=== PATIENT | male | born 1990 | race Two or more races ===

== ENCOUNTER 2018-03-11 00:16 | Emergency (ER) | payer BC ==
[2018-03-11 00:24] VITALS: BP 143/96
[2018-03-11] MEDS ORDERED: Sodium Chloride 0.9% 1,000 ML IV ONE (00:31)
[2018-03-11] MEDS ORDERED: Ondansetron 4 MG/2 ML SDV IV ONE (00:31)
[2018-03-11] MEDS ORDERED: Ketorolac 30 MG/ML SDV IVPUSH ONE (00:31)
--- NOTE | 2018-03-11 00:43 | EDM.PDOC ---
ED HPI GENERAL MEDICAL PROBLEM - General Chief Complaint: Headache Stated Complaint: FEVER, NAUSEA [id number] Time Seen by Provider: 03/11/18 00:25 Source of Information: Reports: Patient History Limitations: Reports: No Limitations - History of Present Illness INITIAL COMMENTS - FREE TEXT/NARRATIVE: This 27 yo male patient reports to the ED with a 3 day history of a migraine headache. The patient reports he has tried to take baby aspirin and Tylenol for his pain with some temporary symptom relief. The patient reports that he has also had some nasal congestion. 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 The patient reports that he has had headaches in the past, but never this bad. The patient states that he also took some generic Robitussin. The patient reports that he was unable to sleep this evening due to the pain in his head. The patient reports he has also been nauseated due to the headache. 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 [No Known Home Meds] 03/11/18 [History] Past Medical History - Past Surgical History Other Musculoskeletal Surgeries/Procedures:: broken nose; bron right arm and right leg Social & Family History - Caffeine Use Caffeine Use: Reports: Soda, Tea ED ROS GENERAL - Review of Systems Review Of Systems: ROS reveals no pertinent complaints other than HPI. - Physical Exam Exam: See Below Exam Limited By: No Limitations General Appearance: Alert, WD/WN, Moderate Distress Eye Exam: Bilateral Eye: EOMI, Normal Inspection, PERRL Ears: Normal External Exam, Normal Canal, Hearing Grossly Normal, Normal TMs Nose: Normal Inspection, Normal Mucosa, No Blood, Clear Rhinorrhea Throat/Mouth: Normal Inspection Head Exam: Atraumatic, Normocephalic Neck: Normal Inspection, Supple, Non-Tender, Full Range of Motion Respiratory/Chest: No Respiratory Distress, Lungs Clear, Normal Breath Sounds, No Accessory Muscle Use, Chest Non-Tender Cardiovascular: Normal Peripheral Pulses, Regular Rate, Rhythm, No Edema, No Gallop, No JVD, No Murmur, No Rub GI/Abdominal: Normal Bowel Sounds, Soft, Non-Tender, No Organomegaly, No Distention, No Abnormal Bruit, No Mass (Male) Exam: Deferred Rectal (Males) Exam: Deferred Neuro Exam (Abbreviated): Alert, Oriented, CN II-XII Intact, Normal Cognition, Normal Gait, Normal Reflexes, No Motor/Sensory Deficits Back Exam: Normal Inspection, Full Range of Motion, NT Extremities: Normal Inspection, Normal Range of Motion, Non-Tender, No Pedal Edema, Normal Capillary Refill Psychiatric: Normal Affect, Normal Mood Skin Exam: Warm, Dry, Intact, Normal Color, No Rash Course - Vital Signs Last Recorded V/S: Last Vital Signs Temp 37.2 C 03/11/18 00:23 Pulse 114 H 03/11/18 00:23 Resp 16 03/11/18 00:23 BP 143/96 H 03/11/18 00:23 Pulse Ox 98 03/11/18 00:23 - Orders/Labs/Meds Orders: Active Orders 24 hr Category Date Time Status Sodium Chloride 0.9% [Normal Saline] 1,000 ml Med 03/11/18 00:31 Ordered IV .BOLUS Medication Orders Sodium Chloride (Normal Saline) 1,000 mls @ 999 mls/hr IV .BOLUS ONE Stop: 03/11/18 01:31 Meds: Medications Generic Name Dose Route Start Last Admin Trade Name Freq PRN Reason Stop Dose Admin Sodium Chloride 1,000 mls @ 999 mls/hr 03/11/18 00:31 Normal Saline IV 03/11/18 01:31 .BOLUS ONE Discontinued Medications Generic Name Dose Route Start Last Admin Trade Name Freq PRN Reason Stop Dose Admin Ketorolac Tromethamine 30 mg 03/11/18 00:31 Toradol IVPUSH 03/11/18 00:32 ONETIME ONE Ondansetron HCl 4 mg 03/11/18 00:31 Zofran IV 03/11/18 00:32 ONETIME ONE Departure - Departure Time of Disposition: 01:30 Disposition: Home, Self-Care 01 Condition: Fair Clinical Impression: Migraine - Discharge Information Instructions: Migraine Headache, [id number] Forms: ED Department Discharge Care Plan Goals: The patient was advised of the examination results during the visit. The patient was given a liter of IV fluid, IV Zofran (for nausea) and IV Toradol ( for headache). The patient was encouraged to increased his oral fluid intake. The patient may take Tylenol or ibuprofen as directed for temporary symptom relief. If the patient has any additional symptoms or concerns, the patient should follow-up with his primary care facility or return to the emergency department. - My Orders Last 24 Hours: My Active Orders 03/11/18 00:31 Sodium Chloride 0.9% [Normal Saline] 1,000 ml IV .BOLUS - Assessment/Plan Last 24 Hours: My Active Orders 03/11/18 00:31 Sodium Chloride 0.9% [Normal Saline] 1,000 ml IV .BOLUS
== END 2018-03-11 01:50 | disposition home or self-care (01) ==
LOC: DL.ED 00:16
DX: G43.909 Migraine, unspecified, not intractable, without status migrainosus (principal)
CPT/HCPCS: 99282; J1885; J2405; J7030

== ENCOUNTER 2018-10-10 07:00 | Emergency (ER) | payer BC ==
--- NOTE | 2018-10-10 07:38 | EDM.PDOC ---
ED HPI GENERAL MEDICAL PROBLEM - General Chief Complaint: Fever Stated Complaint: FEVER [id number] Time Seen by Provider: 10/10/18 07:38 Source of Information: Reports: Patient, RN, RN Notes Reviewed History Limitations: Reports: No Limitations - History of Present Illness INITIAL COMMENTS - FREE TEXT/NARRATIVE: Pt to ER with c/o sore throat, fever for 2 days, and left eye redness and watering that began this morning. Pt states he has been using ibuprofen for fever and pain. Onset: Gradual - Related Data Allergies Allergy/AdvReac Type Severity Reaction Status Date / Time No Known Allergies Allergy Verified 03/11/18 00:25 Home Meds: Home Meds . [No Known Home Meds] 03/11/18 [History] Past Medical History - Past Health History Medical/Surgical History: Denies Medical/Surgical History - Past Surgical History Other Musculoskeletal Surgeries/Procedures:: broken nose; bron right arm and right leg Social & Family History - Family History Family Medical History: Noncontributory - Caffeine Use Caffeine Use: Reports: Soda, Tea ED ROS ENT - Review of Systems Review Of Systems: ROS reveals no pertinent complaints other than HPI. ED EXAM, ENT - Physical Exam Exam: See Below Exam Limited By: No Limitations General Appearance: Alert, WD/WN, No Apparent Distress Eye Exam: Left Eye: Conjunctival Injection, Bilateral Eye: EOMI Ears: Normal External Exam, Hearing Grossly Normal Nose: Normal Inspection Mouth/Throat: Tonsillar Erythema, Tonsillar Swelling Head: Atraumatic, Normocephalic Neck: Normal Inspection, Supple, Non-Tender, Full Range of Motion Respiratory/Chest: No Respiratory Distress, Lungs Clear, Normal Breath Sounds, No Accessory Muscle Use, Chest Non-Tender Cardiovascular: Normal Peripheral Pulses, Regular Rate, Rhythm, No Edema, No Gallop, No JVD, No Murmur, No Rub GI/Abdominal: Normal Bowel Sounds, Soft, Non-Tender (Male) Exam: Deferred Rectal (Males) Exam: Deferred Back: Normal Inspection, Full Range of Motion Extremities: Normal Inspection, Normal Range of Motion, Non-Tender, No Pedal Edema, Normal Capillary Refill Neurological: Alert, Oriented, CN II-XII Intact, Normal Cognition, Normal Gait, Normal Reflexes, No Motor/Sensory Deficits Psychiatric: Normal Affect, Normal Mood Skin: Warm, Dry, Intact, Normal Color, No Rash Lymphatic: No Adenopathy Course - Orders/Labs/Meds Labs: Rapid Strep: Positive Influenza A & B: Negative Departure - Departure Time of Disposition: 07:46 Disposition: Home, Self-Care 01 Condition: Fair Clinical Impression: Strep throat, Bacterial conjunctivitis of left eye - Discharge Information *PRESCRIPTION DRUG MONITORING PROGRAM REVIEWED*: No *COPY OF PRESCRIPTION DRUG MONITORING REPORT IN PATIENT ANUPAM: No Instructions: Bacterial Conjunctivitis, [id number], Strep Throat, Easy-to- Read, Sore Throat, [id number], Fever, Adult, [id number] Forms: ED Department Discharge Additional Instructions: May use Tylenol and/or Ibuprofen as directed for pain/fever RX: Amoxicillin and PolymyxinB eye drops Follow up with your primary care facility
[2018-10-10 08:48] VITALS: BP 123/65
== END 2018-10-10 08:02 | disposition home or self-care (01) ==
LOC: DL.ED 07:00
DX: J02.0 Streptococcal pharyngitis (principal); H10.9 Unspecified conjunctivitis; B96.89 Other specified bacterial agents as the cause of diseases classified elsewhere
CPT/HCPCS: 87430; 87804; 99283